=== PATIENT | female | born 1980 | race Caucasian/White ===

== ENCOUNTER 2017-06-24 14:44 | Emergency (ER) | payer MEDICAID ==
[~2017-06-24] VITALS: Ht 160 cm; Wt 81.6 kg
[2017-06-24 15:03] VITALS: Ht 160 cm; Wt 81.6 kg
[2017-06-24 18:17] LABS: ALBUMIN 3.8 g/dL (3.4-5.0); ALKALINE PHOSPHATASE 59 U/L (46-116); ALT/SGPT 20 U/L (14-59); AST/SGOT 11 U/L (15-37); BILIRUBIN TOTAL 1.1 mg/dL (0.20-1.00); CALCIUM 9.2 mg/dL (8.5-10.1); CARBON DIOXIDE 23.5 mmol/L (21-32); CHLORIDE SERUM 99 mmol/L (98-107); CREATININE SERUM 0.7 mg/dL (0.6-1.0); GFR1 > 60 mL/min; GLUCOSE SERUM 95 mg/dL (74-106); LIPASE 63 IU/L (73-393); SODIUM SERUM 137 mmol/L (136-145)
[2017-06-24 18:18] LABS: PLATELET COUNT 366 x10^3mcL (130-400); RED CELL DISTRIBUTION WIDTH 12.7 % (11.5-14.5)
[2017-06-24 18:19] LABS: TOTAL PROTEIN, SERUM 8.4 g/dL (6.4-8.2)
[2017-06-24 18:38] LABS: BASOPHIL % 0 % (0-2)
[2017-06-24 18:59] VITALS: BP 111/56
[2017-06-29] MEDS ORDERED: BACTRIM DS1 TAB PO (12:43)
[2017-06-29] MEDS ORDERED: LAC PO (12:43)
== END 2017-06-24 20:45 | disposition home or self-care (01) ==
LOC: ED 14:44
PROVIDERS: Emergency Medicine
DX: R10.2 Pelvic and perineal pain (principal); R50.9 Fever, unspecified; M79.1 Myalgia; D72.829 Elevated white blood cell count, unspecified
CPT/HCPCS: 36415; J2270; Q0162

== ENCOUNTER 2017-06-26 11:10 | Inpatient (IN) | payer MEDICAID ==
[~2017-06-26] VITALS: Ht 160 cm; Wt 85.3 kg
[2017-06-26 12:45] LABS: BASOPHIL % 0.1 % (0-2); PLATELET COUNT 314 x10^3mcL (130-400); RED CELL DISTRIBUTION WIDTH 12.9 % (11.5-14.5)
[2017-06-26 12:48] LABS: UA SPECIFIC GRAVITY 1.015 (1.005-1.035); microscopic required? YES; urine erythrocyte 2+ (NEGATIVE)
[2017-06-26 13:23] LABS: ALBUMIN 3.5 g/dL (3.4-5.0); ALKALINE PHOSPHATASE 97 U/L (46-116); ALT/SGPT 40 U/L (14-59); AST/SGOT 29 U/L (15-37); BILIRUBIN TOTAL 1.1 mg/dL (0.20-1.00); CARBON DIOXIDE 24.4 mmol/L (21-32); CHLORIDE SERUM 96 mmol/L (98-107); CHOLESTEROL 145 mg/dL (<200); CREATININE SERUM 0.8 mg/dL (0.6-1.0); GFR1 > 60 mL/min; GLUCOSE SERUM 114 mg/dL (74-106); HDL CHOLESTEROL 36 mg/dL (40-60); SODIUM SERUM 135 mmol/L (136-145)
[2017-06-26 13:25] LABS: TOTAL PROTEIN, SERUM 8.5 g/dL (6.4-8.2)
[2017-06-26 13:29] LABS: POTASSIUM SERUM 2.7 mmol/L (3.5-5.1)
[2017-06-26] MEDS ORDERED: CEPHALEXIN500 MG PO (13:43)
[2017-06-26 14:00] LABS: C REACTIVE PROTEIN 33.5 mg/dL (<=0.9)
[2017-06-26 14:34] VITALS: BP 91/66
[2017-06-26 14:57] LABS: AMPHETAMINE QUAL UR NONE DETECTED (NEG <=1000)
[2017-06-26 15:11] LABS: CHOLESTEROL/HDL RATIO 4.1; MAGNESIUM 2.3 mg/dL (1.8-2.4); PHOSPHOROUS 1.6 mg/dL (2.5-4.9)
[2017-06-26 15:15] LABS: T3 TOTAL 0.66 ng/mL
[2017-06-26 15:32] LABS: FREE T4 1.17 ng/dL (0.76-1.46); FREE THYROXINE INDEX 2.4 ug/dL (1.4-4.5); T4(THYROXINE) 6.4 ug/dL (4.7-13.3)
[2017-06-26 16:40] LABS: TOTAL PROTEIN CSF 20.3 mg/dL (15-45)
[2017-06-26 17:19] LABS: APPEARANCE CSF CLEAR; COLOR CSF COLORLESS; RBC CSF 2 /cumm (0); WBC CSF 0 /cumm (0-5)
[2017-06-26 18:28] VITALS: BP 97/53
[2017-06-26 18:29] LABS: CALCIUM 7.6 mg/dL (8.5-10.1); CARBON DIOXIDE 23.4 mmol/L (21-32); CHLORIDE SERUM 101 mmol/L (98-107); CREATININE SERUM 0.6 mg/dL (0.6-1.0); GFR1 > 60 mL/min; GLUCOSE SERUM 109 mg/dL (74-106); SODIUM SERUM 136 mmol/L (136-145)
[2017-06-26 18:47] LABS: POTASSIUM SERUM 2.9 mmol/L (3.5-5.1)
[2017-06-26 20:24] VITALS: BP 85/53
[2017-06-26 23:05] VITALS: BP 96/54
[2017-06-27 02:51] VITALS: BP 87/57
[2017-06-27 05:46] VITALS: BP 100/64
[2017-06-27 07:46] LABS: BASOPHIL % 0.2 % (0-2); PLATELET COUNT 253 x10^3mcL (130-400); RED CELL DISTRIBUTION WIDTH 12.8 % (11.5-14.5)
[2017-06-27 08:15] LABS: CALCIUM 8.1 mg/dL (8.5-10.1); CARBON DIOXIDE 21.4 mmol/L (21-32); CHLORIDE SERUM 107 mmol/L (98-107); CREATININE SERUM 0.5 mg/dL (0.6-1.0); GFR1 > 60 mL/min; GLUCOSE SERUM 113 mg/dL (74-106); MAGNESIUM 2.1 mg/dL (1.8-2.4); PHOSPHOROUS 2.2 mg/dL (2.5-4.9); POTASSIUM SERUM 3.3 mmol/L (3.5-5.1); SODIUM SERUM 139 mmol/L (136-145)
[2017-06-27 08:18] VITALS: Ht 160 cm; Wt 85.3 kg
[2017-06-27 09:23] VITALS: BP 91/52
[2017-06-27 16:46] VITALS: BP 92/54
[2017-06-27 21:39] VITALS: BP 101/48
[2017-06-28 05:58] VITALS: BP 101/62
[2017-06-28 06:16] LABS: BASOPHIL % 0.2 % (0-2); PLATELET COUNT 294 x10^3mcL (130-400); RED CELL DISTRIBUTION WIDTH 13.3 % (11.5-14.5)
[2017-06-28 06:39] LABS: CALCIUM 8.3 mg/dL (8.5-10.1); CARBON DIOXIDE 25.1 mmol/L (21-32); CHLORIDE SERUM 106 mmol/L (98-107); CREATININE SERUM 0.6 mg/dL (0.6-1.0); GFR1 > 60 mL/min; GLUCOSE SERUM 103 mg/dL (74-106); MAGNESIUM 2.1 mg/dL (1.8-2.4); PHOSPHOROUS 4.3 mg/dL (2.5-4.9); POTASSIUM SERUM 3.5 mmol/L (3.5-5.1); SODIUM SERUM 141 mmol/L (136-145)
[2017-06-28 11:25] VITALS: BP 96/50
[2017-06-28] MEDS ORDERED: LEVAQUIN750 MG PO (14:58)
[2017-06-28] MEDS ORDERED: FIORICET1 CAP PO (14:59)
[2017-06-28 15:13] VITALS: BP 96/50
[2017-06-29] MEDS ORDERED: LAC PO (12:43)
[2017-06-29] MEDS ORDERED: BACTRIM DS1 TAB PO (12:43)
== END 2017-06-28 15:52 | disposition home or self-care (01) | DRG 463 ==
LOC: ED 11:10 → MU 13:38 → DU 13:38 → MU 06-27 10:59 → DU 06-27 17:24
PROVIDERS: Emergency Medicine; Family Medicine
PROC: 009U3ZX Drainage of Spinal Canal, Percutaneous Approach, Diagnostic (ICD-10-PCS; principal; 2017-06-26)
PROC: B01B1ZZ Fluoroscopy of Spinal Cord using Low Osmolar Contrast (ICD-10-PCS; 2017-06-26)
DX: N10 Acute pyelonephritis (principal); N17.0 Acute kidney failure with tubular necrosis; E87.1 Hypo-osmolality and hyponatremia; E83.39 Other disorders of phosphorus metabolism; B96.20 Unspecified Escherichia coli [E. coli] as the cause of diseases classified elsewhere; T44.3X1A Poisoning by other parasympatholytics [anticholinergics and antimuscarinics] and spasmolytics, accidental (unintentional), initial encounter; T44.4X1A Poisoning by predominantly alpha-adrenoreceptor agonists, accidental (unintentional), initial encounter; E86.0 Dehydration; E87.6 Hypokalemia; D25.9 Leiomyoma of uterus, unspecified; E78.2 Mixed hyperlipidemia; F55.8 Abuse of other non-psychoactive substances; Z16.12 Extended spectrum beta lactamase (ESBL) resistance; Z16.24 Resistance to multiple antibiotics; Y92.009 Unspecified place in unspecified non-institutional (private) residence as the place of occurrence of the external cause
CPT/HCPCS: 62272; 83880; 84439; 86788; 86789; 87804; J0133; J0696; J1885; J2270; J2405; J3480; J7030; J7040; Q0092; Q9967

== ENCOUNTER 2018-01-27 13:08 | Emergency (ER) | payer OTHER ==
[~2018-01-27] VITALS: Ht 157.5 cm; Wt 88.9 kg
[~2018-01-27 13:08] MED LIST: BACTRIM DS1 TAB PO; CEPHALEXIN500 MG PO; FIORICET1 CAP PO; LAC PO; LEVAQUIN750 MG PO
[2018-01-27 13:18] VITALS: Ht 157.5 cm; Wt 88.9 kg
[2018-01-27 16:14] VITALS: BP 107/61
== END 2018-01-27 16:32 | disposition home or self-care (01) ==
LOC: ED 13:08
DX: S39.012A Strain of muscle, fascia and tendon of lower back, initial encounter (principal); W18.49XA Other slipping, tripping and stumbling without falling, initial encounter; Y93.89 Activity, other specified; Y92.89 Other specified places as the place of occurrence of the external cause; Y99.8 Other external cause status
CPT/HCPCS: J1885

== ENCOUNTER 2018-04-04 15:15 | Inpatient (IN) | payer MEDICAID ==
[~2018-04-04] VITALS: Ht 160 cm; Wt 89.9 kg
[2018-04-04 16:48] LABS: BASOPHIL % 0.3 % (0-2); PLATELET COUNT 320 x10^3mcL (130-400); RED CELL DISTRIBUTION WIDTH 12.6 % (11.5-14.5)
[2018-04-04 16:56] LABS: CALCIUM 9.1 mg/dL (8.5-10.1); CARBON DIOXIDE 23.4 mmol/L (21-32); CHLORIDE SERUM 102 mmol/L (98-107); CREATININE SERUM 0.7 mg/dL (0.6-1.0); GFR1 > 60 mL/min; GLUCOSE SERUM 98 mg/dL (74-106); POTASSIUM SERUM 3.5 mmol/L (3.5-5.1); SODIUM SERUM 139 mmol/L (136-145)
[2018-04-04 17:01] LABS: ALBUMIN 3.9 g/dL (3.4-5.0); ALKALINE PHOSPHATASE 70 U/L (46-116); ALT/SGPT 37 U/L (14-59); AMYLASE 30 U/L (25-115); AST/SGOT 22 U/L (15-37); BILIRUBIN TOTAL 0.88 mg/dL (0.20-1.00); LIPASE 87 IU/L (73-393); TOTAL PROTEIN, SERUM 7.7 g/dL (6.4-8.2)
[2018-04-04 17:17] LABS: microscopic required? YES; urine erythrocyte 2+ (NEGATIVE)
[2018-04-05 00:31] VITALS: BP 101/68; BP 106/65
[2018-04-05 00:34] VITALS: Ht 160 cm; Wt 89.9 kg
[2018-04-05 00:38] LABS: FREE T4 1.02 ng/dL (0.76-1.46); T4(THYROXINE) 8.8 ug/dL (4.7-13.3)
[2018-04-05 01:02] LABS: T3 TOTAL 1.42 ng/mL
[2018-04-05 01:10] LABS: MAGNESIUM 1.8 mg/dL (1.8-2.4); PHOSPHOROUS 2.5 mg/dL (2.5-4.9)
[2018-04-05 01:11] LABS: CHOLESTEROL/HDL RATIO 4.5
[2018-04-05 06:03] VITALS: BP 93/62
[2018-04-05 06:25] LABS: BASOPHIL % 0.3 % (0-2); PLATELET COUNT 326 x10^3mcL (130-400); RED CELL DISTRIBUTION WIDTH 12.9 % (11.5-14.5)
[2018-04-05 06:48] LABS: CALCIUM 8.8 mg/dL (8.5-10.1); CARBON DIOXIDE 27.6 mmol/L (21-32); CHLORIDE SERUM 103 mmol/L (98-107); CREATININE SERUM 0.6 mg/dL (0.6-1.0); GFR1 > 60 mL/min; GLUCOSE SERUM 107 mg/dL (74-106); POTASSIUM SERUM 3.2 mmol/L (3.5-5.1); SODIUM SERUM 140 mmol/L (136-145)
[2018-04-05 10:54] LABS: AMPHETAMINE QUAL UR NONE DETECTED (See below)
[2018-04-05] MEDS ORDERED: ZIT250 PO ×2 (15:37→16:04)
[2018-04-05] MEDS ORDERED: FLA500 PO (15:39)
[2018-04-05 16:11] VITALS: BP 93/62
[2018-04-05 16:31] VITALS: BP 92/52
== END 2018-04-05 17:39 | disposition home or self-care (01) | DRG 531 ==
LOC: ED 15:15 → MU 23:09
PROVIDERS: General Practice
DX: A59.03 Trichomonal cystitis and urethritis (principal); E66.9 Obesity, unspecified; N83.292 Other ovarian cyst, left side; E78.1 Pure hyperglyceridemia; Z68.35 Body mass index [BMI] 35.0-35.9, adult
CPT/HCPCS: 82962; 83880; 84439; 87491; 87591; 90658; J0696; J1885; J2270; J7030; Q0092; Q0162

== ENCOUNTER 2019-01-19 20:53 | Emergency (ER) | payer MEDICAID ==
[~2019-01-19] VITALS: Ht 157.5 cm; Wt 90.7 kg
[~2019-01-19 20:53] MED LIST changes: +FLA500 PO; +ZIT250 PO
[2019-01-19 20:56] VITALS: Ht 157.5 cm; Wt 90.7 kg
[2019-01-19 22:33] LABS: BASOPHIL % 0.4 % (0-2); PLATELET COUNT 323 x10^3mcL (130-400); RED CELL DISTRIBUTION WIDTH 12.7 % (11.5-14.5)
[2019-01-19 22:44] LABS: CALCIUM 8.8 mg/dL (8.5-10.1); CARBON DIOXIDE 27.1 mmol/L (21-32); CHLORIDE SERUM 104 mmol/L (98-107); CREATININE SERUM 0.7 mg/dL (0.6-1.0); GFR1 > 60 mL/min; GLUCOSE SERUM 118 mg/dL (74-106); POTASSIUM SERUM 3.6 mmol/L (3.5-5.1); SODIUM SERUM 141 mmol/L (136-145)
[2019-01-19 22:52] LABS: ALBUMIN 3.6 g/dL (3.4-5.0); ALKALINE PHOSPHATASE 65 U/L (46-116); ALT/SGPT 23 U/L (14-59); AST/SGOT 12 U/L (15-37); BILIRUBIN TOTAL 0.48 mg/dL (0.20-1.00); TOTAL PROTEIN, SERUM 7.5 g/dL (6.4-8.2)
[2019-01-20 00:34] VITALS: BP 110/68
== END 2019-01-20 00:34 | disposition home or self-care (01) ==
LOC: ED 20:53
PROVIDERS: Emergency Medicine
DX: R07.89 Other chest pain (principal); R11.0 Nausea
CPT/HCPCS: J1885; Q0092

== ENCOUNTER 2019-09-09 21:11 | Emergency (ER) | payer MEDICAID ==
[~2019-09-09] VITALS: Ht 157.5 cm; Wt 92.8 kg
[2019-09-09 21:21] VITALS: Ht 157.5 cm; Wt 92.8 kg
[2019-09-10 00:19] VITALS: BP 110/79
== END 2019-09-10 00:21 | disposition home or self-care (01) ==
LOC: ED 21:11
DX: N60.09 Solitary cyst of unspecified breast (principal); N64.4 Mastodynia; J45.909 Unspecified asthma, uncomplicated
CPT/HCPCS: 76641; Q0092

== ENCOUNTER 2020-02-17 21:22 | Emergency (ER) | payer MEDICAID ==
[~2020-02-17] VITALS: Ht 162.6 cm; Wt 93.9 kg
[2020-02-17 21:34] VITALS: Ht 162.6 cm; Wt 93.9 kg
[2020-02-17 22:29] VITALS: BP 110/68
== END 2020-02-17 22:29 | disposition home or self-care (01) ==
LOC: ED 21:22
DX: M25.511 Pain in right shoulder (principal); M54.6 Pain in thoracic spine; X50.0XXA Overexertion from strenuous movement or load, initial encounter; Y93.89 Activity, other specified; Y92.89 Other specified places as the place of occurrence of the external cause; Y99.8 Other external cause status
CPT/HCPCS: 72072; J1885

== ENCOUNTER 2020-05-17 12:14 | Emergency (ER) | payer MEDICAID ==
[~2020-05-17] VITALS: Ht 152.4 cm; Wt 90.7 kg
[2020-05-17 12:45] VITALS: BP 105/63; Ht 152.4 cm; Wt 90.7 kg
[2020-05-17] MEDS ORDERED: ULTRAM50 MG PO (14:10)
[2020-05-17] MEDS ORDERED: NAPROXEN375 MG PO (14:10)
== END 2020-05-17 15:01 | disposition home or self-care (01) ==
LOC: ED 12:14
DX: S93.402A Sprain of unspecified ligament of left ankle, initial encounter (principal); S93.602A Unspecified sprain of left foot, initial encounter; J45.909 Unspecified asthma, uncomplicated; W17.2XXA Fall into hole, initial encounter; Y93.89 Activity, other specified; Y92.89 Other specified places as the place of occurrence of the external cause; Y99.8 Other external cause status